=== PATIENT | female | born 1940 | race Caucasian/White ===

== ENCOUNTER 2025-05-13 20:06 | Observation (INO) ==
[2025-05-13] MEDS ORDERED: IOPAMIDOL 100 ML BOTTLE IV ONE (20:07)
[2025-05-13] MEDS: ASPIRIN 81 MG TAB.CHEW CHEWED ONE (20:40)
[2025-05-13 20:43] LABS: Basophils # (Auto) 0.03 K/mcL (0.00-0.30); Basophils % (Auto) 0.4 % (0.0-2.0); Eosinophils # (Auto) 0.34 K/mcL (0.00-0.70); Eosinophils % (Auto) 4.5 % (0.0-7.0); Hematocrit 38.6 % (34.1-44.9); Hemoglobin 11.9 g/dL (11.2-15.7); Lymphocytes # (Auto) 2.95 K/mcL (1.50-4.80); Lymphocytes % (Auto) 38.9 % (15.5-49.0); Mean Corpuscular HGB Conc 30.8 g/dL (31.0-36.0); Monocytes # (Auto) 1.06 K/mcL (0.10-0.90); Monocytes % (Auto) 14.0 % (1.0-12.0); Neutrophils % (Auto) 42.1 % (38.0-78.0); Platelet Count 251 K/mcL (140-440); RBC 4.09 M/mcL (3.59-5.38); WBC 7.6 K/mcL (4.5-11.0)
[2025-05-13 21:03] LABS: ALT/SGPT 19 U/L (<40); AST/SGOT 18 U/L (<32); Albumin 4.2 gm/dL (3.2-5.2); Albumin/Globulin Ratio 1.6 (1.0-2.3); Alkaline Phosphatase 92 U/L (39-117); Anion Gap 12.0 (8.0-16.0); Bilirubin,Total < 0.2 mg/dL (0.1-1.0); Blood Urea Nitrogen 25 mg/dL (8-23); Calcium 10.3 mg/dL (8.6-10.4); Carbon Dioxide 25 mmol/L (22-30); Chloride 105 mmol/L (96-108); Globulin 2.7 gm/dL (2.2-3.7); Glucose 100 mg/dL (70-105); Potassium 4.0 mmol/L (3.3-5.1); Sodium 142 mmol/L (133-145)
[2025-05-13 21:04] LABS: INR 0.9 (0.9-1.1); Partial Thromboplastin Time 26.5 sec (20.0-37.0); Prothrombin Time 12.9 sec (11.9-14.5)
[2025-05-13] MEDS ORDERED: ACETAMINOPHEN 325 MG TABLET PO PRN (23:17)
[2025-05-13] MEDS ORDERED: ONDANSETRON 4 MG/2 ML VIAL IV PRN (23:17)
[2025-05-13] MEDS: 0.9 % SODIUM CHLORIDE 10 ML SYRINGE IV SCH (23:30)
[2025-05-14 02:32] LABS: HDL Cholesterol 54.0 mg/dL (>40); LDL Cholesterol,Calculated 123.0 mg/dL (<100); Triglycerides 311.0 mg/dL (<150)
[2025-05-14 02:36] LABS: Estimated Average Glucose(eAG) 134.0 mg/dL; Hemoglobin A1C 6.3 % Hgb (4.0-6.0)
[2025-05-14 07:58] VITALS: TEMP 97.7; O2SAT 92
[2025-05-14] MEDS: ASPIRIN 81 MG TAB.CHEW CHEWED SCH (09:00)
[2025-05-14] MEDS ORDERED: ATORVASTATIN 40 MG TABLET PO SCH (21:00)
[2025-05-14] MEDS ORDERED: SENNOSIDES 1 TABLET PO SCH (21:00)
== END 2025-05-14 11:45 | disposition home or self-care (01) ==
LOC: ED 20:06 → MEDSUR 20:06
PROVIDERS: ADMIT Internal Medicine; ATTEND Internal Medicine